=== PATIENT | male | born 1970 | race Caucasian/White ===

== ENCOUNTER 2016-11-30 17:26 | Emergency (ER) | payer OTHER ==
[~2016-11-30] VITALS: Ht 182.9 cm; Wt 81.4 kg
[~2016-11-30 17:26] MED LIST: CLINDAMYCIN HC300 MG PO; GABAPENTIN100 MG PO; METHADONE10 MG PO; NAPROSYN500 MG PO; NAPROXEN500 MG PO; OXYCODONE HCL15 MG PO; OXYMORPHONE HCL10 M1 PO; PERCOCET 5/31 TABLET PO
[2016-11-30 22:22] LABS: ADD MIUA? YES; BILIRUBIN NEGATIVE; BLOOD SMALL; COLOR YELLOW ((YELLOW)); GLUCOSE (STRIP) NEGATIVE; KETONES NEGATIVE; LEUKOCYTES NEGATIVE; NITRITE NEGATIVE; PROTEIN (STRIP) 30; SPECIFIC GRAVITY 1.016 (1.000-1.030)
[2016-11-30 22:32] LABS: BACTERIA RARE /HPF; EPITHELIAL CELLS RARE /HPF; MUCUS TRACE /LPF; UCUL ADDED? NO; WHITE BLOOD CELLS 0-5 /HPF (0-5)
[2016-11-30] MEDS ORDERED: PERCOCET 5/31 TABLET PO ×2 (23:03→23:10)
[2016-11-30] MEDS ORDERED: MOTRIN800 MG PO ×2 (23:03→23:10)
[2016-11-30 23:22] VITALS: BP 179/80
== END 2016-11-30 23:23 | disposition home or self-care (01) ==
LOC: EME 17:26
PROVIDERS: Nurse Practitioner Family
DX: S30.21XA Contusion of penis, initial encounter (principal); X58.XXXA Exposure to other specified factors, initial encounter; F17.200 Nicotine dependence, unspecified, uncomplicated
CPT/HCPCS: 76870; 81003; 99281; 99285